=== PATIENT | female | born 1930 | race Caucasian/White ===

== ENCOUNTER 2017-03-03 19:25 | Inpatient (IN) | payer MEDICARE, OTHER ==
[~2017-03-03] VITALS: Ht 162.6 cm; Wt 53.0 kg
[~2017-03-03 19:25] MED LIST: AMLO10TA2 PO; ASCO-96 PO; DABI75CA3 PO; FLEC100T PO; GLUCOSAMINE SULFATE PEG; METO25TA91 PO; MULT-516 PO; POTA10TA; POTA10TA90 PO; TRIA1CAP3 PO
[2017-03-03] MEDS ORDERED: SODIUM CHLORIDE FLUSH 10ML SYR IVF ONE (20:00)
[2017-03-03 20:14] LABS: HEMOGLOBIN 9.4 g/dL (11.7-16.4); WHITE BLOOD COUNT 7.2 x10^3/uL (3.4-10)
[2017-03-03 20:17] LABS: ASPARTATE AMINO TRANSFERASE 83 U/L (15-37); BLOOD UREA NITROGEN 24 mg/dL (7-18)
[2017-03-03] MEDS ORDERED: PIPERACILLIN/TAZO/PMX 3.375GM 50 ML ONE (20:26)
[2017-03-03 20:27] LABS: IS PT STATUS REG ER OR PRE ER? YES
[2017-03-03] MEDS ORDERED: PLEASE ENTER ALLERGIES MC SCH ×2 (20:30)
[2017-03-03] MEDS ORDERED: PIPERACILLIN/TAZO/PMX 3.375GM 50 ML IV ONE (20:30)
[2017-03-03] MEDS ORDERED: ACETAMINOPHEN 325 MG TABLET PO PRN (22:00)
[2017-03-03] MEDS ORDERED: ENALAPRILAT 1.25 MG/ML, 2ML IVPush PRN (22:00)
[2017-03-03] MEDS ORDERED: TEMAZEPAM 15 MG CAPSULE PO PRN (22:00)
[2017-03-03] MEDS ORDERED: FUROSEMIDE 20 MG/2 ML ONE (22:26)
[2017-03-03] MEDS ORDERED: FUROSEMIDE 20 MG/2 ML IV ONE (22:30)
[2017-03-03] MEDS ORDERED: FURO20TA3 PO (23:15)
[2017-03-03] MEDS ORDERED: CHOL500022 PO (23:15)
[2017-03-03] MEDS ORDERED: FLUT100B INH (23:15)
[2017-03-03] MEDS ORDERED: TRIA1TAB3 PO (23:15)
[2017-03-03] MEDS ORDERED: ALBUTEROL/IPRATROPIUM 2.5MG/0.5MG, 3 ML NPPB PRN (23:30)
[2017-03-03 23:33] VITALS: BP 163/72
[2017-03-04] MEDS: CEFTRIAXONE PMX 1GM/50ML 50 ML IV SCH (00:41)
[2017-03-04 01:45] VITALS: BP 147/63
[2017-03-04] MEDS ORDERED: DIPH25CA61 PO (05:45)
[2017-03-04] MEDS ORDERED: VIT1CAPS42 PO (05:45)
[2017-03-04 05:46] LABS: HEMATOCRIT 29.5 % (34.6-47.8); HEMOGLOBIN 9.3 g/dL (11.7-16.4); WHITE BLOOD COUNT 9.2 x10^3/uL (3.4-10)
[2017-03-04 05:50] LABS: BLOOD UREA NITROGEN 23 mg/dL (7-18)
[2017-03-04] MEDS: FLUTICASONE FUROATE 100MCG/INH INH SCH ×2 (09:00→22:16)
[2017-03-04] MEDS: METOPROLOL SUCCINATE 25 MG TAB.ER.24H PO SCH ×2 (09:00→20:33)
[2017-03-04] MEDS: DABIGATRAN 75 MG CAPSULE PO SCH ×2 (09:41→20:33)
[2017-03-04] MEDS: FLECAINIDE 100MG TABLET PO SCH ×2 (09:41→20:33)
[2017-03-04 09:42] VITALS: BP 166/67
[2017-03-04 13:20] VITALS: BP 150/59
[2017-03-04 19:57] VITALS: BP 129/53
[2017-03-05] MEDS: CEFTRIAXONE PMX 1GM/50ML 50 ML IV SCH ×2 (00:03→23:38)
[2017-03-05 01:29] VITALS: BP 188/78
[2017-03-05] MEDS ORDERED: FUROSEMIDE 40 MG/4 ML IV ONE ×2 (06:00→19:30)
[2017-03-05 06:16] LABS: HEMATOCRIT 31.1 % (34.6-47.8); HEMOGLOBIN 9.9 g/dL (11.7-16.4); WHITE BLOOD COUNT 11.2 x10^3/uL (3.4-10)
[2017-03-05 07:14] VITALS: BP 200/93
[2017-03-05 08:46] VITALS: BP 164/62
[2017-03-05] MEDS: FLECAINIDE 100MG TABLET PO SCH ×2 (08:48→20:32)
[2017-03-05] MEDS: DABIGATRAN 75 MG CAPSULE PO SCH ×2 (08:48→20:32)
[2017-03-05] MEDS: FLUTICASONE FUROATE 100MCG/INH INH SCH ×2 (08:48→20:32)
[2017-03-05 12:40] VITALS: BP 186/79
[2017-03-05 19:34] VITALS: BP 147/58
[2017-03-06 01:35] VITALS: BP 137/70
[2017-03-06 05:48] LABS: BLOOD UREA NITROGEN 16 mg/dL (7-18)
[2017-03-06 07:25] VITALS: BP 191/88
[2017-03-06] MEDS: FLUTICASONE FUROATE 100MCG/INH INH SCH ×2 (08:11→21:32)
[2017-03-06] MEDS: DABIGATRAN 75 MG CAPSULE PO SCH ×2 (08:11→21:32)
[2017-03-06] MEDS: POTASSIUM CHLORIDE 20 MEQ TAB.ER.PRT PO SCH ×2 (08:11→17:47)
[2017-03-06] MEDS: FLECAINIDE 100MG TABLET PO SCH ×2 (08:11→21:32)
[2017-03-06] MEDS: METOPROLOL SUCCINATE 25 MG TAB.ER.24H PO SCH (08:12)
[2017-03-06] MEDS ORDERED: FUROSEMIDE 40 MG/4 ML IV ONE (13:00)
[2017-03-06 14:23] VITALS: BP 172/79
[2017-03-06 19:34] VITALS: BP 179/77
[2017-03-07] MEDS: CEFTRIAXONE PMX 1GM/50ML 50 ML IV SCH (00:23)
[2017-03-07 00:42] VITALS: BP 165/99
[2017-03-07 05:19] LABS: BLOOD UREA NITROGEN 19 mg/dL (7-18)
[2017-03-07] MEDS: FLUTICASONE FUROATE 100MCG/INH INH SCH (08:47)
[2017-03-07] MEDS: FLECAINIDE 100MG TABLET PO SCH (08:47)
[2017-03-07] MEDS: POTASSIUM CHLORIDE 20 MEQ TAB.ER.PRT PO SCH (08:47)
[2017-03-07] MEDS: METOPROLOL SUCCINATE 25 MG TAB.ER.24H PO SCH (08:48)
[2017-03-07] MEDS: DABIGATRAN 75 MG CAPSULE PO SCH (08:48)
== END 2017-03-07 11:30 | disposition home health service (06) | DRG 291 ==
LOC: ED 22:00 → EDIP 22:15 → 5SO 22:45 → 3NE 03-04 18:36
PROVIDERS: ADMIT Internal Medicine; ATTEND Internal Medicine
DX: I11.0 Hypertensive heart disease with heart failure (principal); J96.21 Acute and chronic respiratory failure with hypoxia; J18.9 Pneumonia, unspecified organism; D68.69 Other thrombophilia; J44.0 Chronic obstructive pulmonary disease with (acute) lower respiratory infection; I48.0 Paroxysmal atrial fibrillation; Z99.81 Dependence on supplemental oxygen; I70.0 Atherosclerosis of aorta; G90.8 Other disorders of autonomic nervous system; I50.33 Acute on chronic diastolic (congestive) heart failure; Z66 Do not resuscitate; Z86.73 Personal history of transient ischemic attack (TIA), and cerebral infarction without residual deficits; Z87.891 Personal history of nicotine dependence; Z88.2 Allergy status to sulfonamides
CPT/HCPCS: 36415; 70450; 71010; 71020; 80048; 80053; 81001; 83605; 83735; 83880; 84439; 84443; 84481; 84484; 85025; 85610; 87040; 87086; 93005; 93306; 94640; 96365; 96375; J0696; J1940; J2543; J7620